=== PATIENT | female | born 1970 | race Caucasian/White ===

== ENCOUNTER 2018-06-28 17:56 | Emergency (ER) | payer OTHER, SELFPAY ==
[2018-06-28 18:01] VITALS: BP 133/88; PULSE 83; RESP 14; TEMP 37.1; O2SAT 100
[2018-06-28] MEDS: Metoclopramide 10 MG TAB PO (18:18)
--- NOTE | 2018-06-28 18:18 | ED.GENADUL_ITS ---
Discharge Plan Disposition Patient Disposition: HOME Condition: Good Discharge Details Chief Complaint: HeadInjury Clinical Impression: Headache Primary Care Provider: Ab Wang ED Provider: Rigo Chan Home Meds and New Rx's Prescriptions: New lidocaine [Lidoderm] 1 PATCH patch 1 patch Topical Q24H Qty: 4 RF: 0 No Action cholecalciferol (vitamin D3) [Vitamin D3] 400 unit Tablet PO DAILY RF: 0 ascorbic acid (vitamin C) [Vitamin C] 500 mg Tablet 500 mg PO DAILY RF: 0 calcium carbonate [Calcium 500] 500 mg calcium (1,250 mg) Tablet PO DAILY RF: 0 cetirizine [24Hour Allergy] 10 mg Tablet PO DAILY RF: 0 Discharge Instructions Instructions: General Headache (ED) Additional Instructions: Please take Tylenol and Motrin as needed for pain. He can take 800 mg of ibuprofen and 1000 mg of Tylenol every 6 hours. Please use Lidoderm patch as directed. Take your home Flexeril only as needed. If you notice any worsening of your symptoms, or any new symptoms such as vomiting, diarrhea, fever, chills, shortness of breath, chest pain, numbness, weakness, or fainting , please return immediately to the emergency department for reevaluation. Please follow up with your primary care provider as soon as possible for reassessment and reevaluation. As always, it was a pleasure participating in your medical care today. Referrals: Ab Wang [Primary Care Provider] - Medical Decision Making This is a 47-year-old female with a past medical history of chronic headaches who presents for evaluation of slightly atypical headache. She hit the back of her head yesterday on a metal piece of a van. She had no loss of consciousness, however since then she has developed which she feels is a tension headache on the left and right side of her head. She is also dizzy, nauseated, and feels like she is in a fog. Physical exam demonstrates no signs of significant trauma. No midline cervical spine tenderness. Neurologic exam demonstrates no significant abnormality suggestive of a severe acute intracranial process. No clinical evidence of a carotid or vertebral artery dissection on exam at this time. I feel the patient signs and symptoms are clinically consistent with mild concussion and mild cervical spine muscles sprain. However because they are atypical for her we will get a CT scan to rule out acute process, bleed or fracture. We will start with a mild migraine cocktail here. 7:52 PM The patient's headache is notably improved. She still does have mild neck achiness but states that she feels much better at this time. We will add a Lidoderm patch. CT scan of the head is negative for any acute process, bleed, or fracture per virtual radiology. CT scan of the cervical spine demonstrates evidence of minimal small left paracentral disc protrusion of C6 5 C6 disc in the C6-C7 disc. No clinical evidence of impingement on exam with normal strength of the upper extremities, no signs of central anterior or posterior cord syndrome. With a continued normal repeat neurologic exam, no evidence of acute intracranial bleed, and notable improvement of her symptoms with NSAID therapy, I feel that the patient be safely discharged home. Recommend continued NSAIDs, Lidoderm patch, she has Flexeril at home. Recommend heating pad at home. I have extensively reviewed the treatment plan and discharge instructions with the patient. I have addressed all patient concerns at this time. The patient was made aware of what symptoms to monitor for that would warrant a return to the emergency department. Discussed the plan with the patient, they demonstrate verbal understanding and agreement with our assessment and plan at this time. EXAM: CT Head Without Contrast EXAM DATE/TIME: 06/28/2018 6:14 PM CLINICAL HISTORY: 47 years old, female; Injury or trauma; Fall; Initial encounter; Blunt trauma (contusions or hematomas); Consciousness not specified; Injury date: 06/27/18; Injury details: Fell yesterday and hit head at base of skull. Headache, dizziness, nausea TECHNIQUE: Imaging protocol: Axial computed tomography images of the head/brain without contrast. Coronal and sagittal reformatted images were created and reviewed. Radiation optimization: All CT scans at this facility use at least one of these dose optimization techniques: automated exposure control; mA and/or kV adjustment per patient size (includes targeted exams where dose is matched to clinical indication); or iterative reconstruction. COMPARISON: No relevant prior studies available. FINDINGS: Brain: No acute intracranial hemorrhage, mass-effect, midline shift, or extra-axial collection is seen. The byrd white matter differentiation appears preserved. Ventricles: The ventricular system and basilar cisterns appear appropriate in size and configuration. Bones/joints: The bony calvarium appears intact. No depressed skull fracture is seen. Sinuses: The visualized paranasal sinuses appear clear. Mastoid air cells: The mastoid air cells appear clear. Auditory system: The middle ear cavities appear clear. Soft tissues: No significant scalp lesion is demonstrated. IMPRESSION: No acute intracranial hemorrhage or depressed skull fracture. EXAM: CT Cervical Spine Without Contrast EXAM DATE/TIME: 06/28/2018 6:14 PM CLINICAL HISTORY: 47 years old, female; Injury or trauma; Fall; Initial encounter; Blunt trauma (contusions or hematomas); Consciousness not specified; Injury date: 06/27/18; Injury details: Fell yesterday and hit head at base of skull. Headache, dizziness, nausea TECHNIQUE: Imaging protocol: Axial computed tomography images of the cervical spine without contrast. Coronal and sagittal reformatted images were created and reviewed. Radiation optimization: All CT scans at this facility use at least one of these dose optimization techniques: automated exposure control; mA and/or kV adjustment per patient size (includes targeted exams where dose is matched to clinical indication); or iterative reconstruction. COMPARISON: No relevant prior studies available. FINDINGS: Vertebrae: No acute cervical fracture is seen. There is straightening and mild reversal of the normal cervical lordosis. This can be seen in the presence of a cervical collar or may result from muscle spasm or positioning; however, in the setting of trauma ligamentous injury cannot be excluded. Discs/Spinal canal/Neural foramina: At C5-C6, there is mild loss of disc height with a small asymmetric left paracentral disc protrusion which abuts and mildly deforms the thecal sac, image 39 of series 10, chronicity uncertain. At C6-C7, there is loss of disc height with a small left paracentral disc protrusion which abuts the thecal sac. There is mild associated posterior osteophytic ridging. At C7-T1, there is loss of disc height but no significant central canal or neural foraminal narrowing. Soft tissues: Within the limits of the exam, no gross soft tissue mass or fluid collection is seen in the neck. Thyroid: The thyroid gland is partially excluded from view but appears grossly unremarkable through its visualized portion. Lungs: The lung apices appear clear. IMPRESSION: 1. No acute cervical fracture or malalignment is seen. 2. C5-C6: Small left paracentral disc protrusion which abuts and mildly deforms the thecal sac, chronicity uncertain. 3. C6-C7, small left paracentral disc protrusion which abuts the thecal sac. Mild associated posterior osteophytic ridging. Dictated and Authenticated by: Hansel Aiken MD. Ordering:AVANI Sierra MD Ordered By: CC: CORINE General Date/Time Provider Initiated Documentation: 06/28/18 17:57 . HPI Narrative: This is a pleasant 47-year-old female with a past medical history of chronic headaches who presents today for evaluation of headache. 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 She had no loss of consciousness, however since then gradually she has had a headache that developed from that location to now encompass both left and the ri ght side of her head. She admits to minimal aversion to light and loud noise, she denies any numbness tingling or weakness. She denies any vomiting but does admit to nausea. She feels that she is in a fog. She denies any room spinning sensation but does admit to dizziness. She denies any tinnitus. She is not on any blood thinners. She has no other complaints at this time. No other modifying factors. She currently denies any neck pain, or other complaints. Related Data Home Medications Medication Instructions Recorded Confirmed ascorbic acid (vitamin C) [Vitamin 500 mg PO DAILY 06/28/18 06/28/18 C] calcium carbonate [Calcium 500] mg PO DAILY 06/28/18 cetirizine [24Hour Allergy] mg PO DAILY 06/28/18 cholecalciferol (vitamin D3) unit PO DAILY 06/28/18 [Vitamin D3] lidocaine [Lidoderm] 1 patch TOPICAL Q24H #4 patch 06/28/18 Previous Rx's Medication Instructions Recorded lidocaine [Lidoderm] 1 patch TOPICAL Q24H #4 patch 06/28/18 Allergies Allergy/AdvReac Type Severity Reaction Status Date / Time No Known Allergies Allergy Unverified 06/28/18 18:05 General Stated Complaint: HeadInjury AVERY: 2 Review of Systems Review of Systems All systems reviewed & are unremarkable except as noted in HPI and below PFSH Social History Smoking/Tobacco Use Status: Current every day Drug use: Never Substance use type: does not use Do you feel safe at home: Yes Do you feel safe in your relationship?: Yes Exam Narrative Exam Narrative: 1.Const: Well-nourished, Well-developed, appearing stated age 2.Eyes: PERRL, no conjunctival injection, and symmetrical lids. 3.ENT: Atraumatic external nose and ears. Moist MM. Neck: Symmetric, trachea midline, No thyromegaly. There is no evidence of raccoon eyes, weber sign, CSF rhinorrhea, mastoid tenderness, cranial crepitus, hemotympanum, exophthalmos, or hyphema. Patient demonstrates intact dentition with no signs of tooth avulsion or fracture, no signs of jaw deformity, no evidence of a LeFort's fracture, with an intact palate, nose and orbital region. There is no evidence of a nasal septal hematoma. No proptosis. Jaw closes symmetrically. Airway is clear. Patient demonstrates good movement of cervical neck. There is no nuchal rigidity, no nuchal tenderness. Patient is able to flex the neck without any difficulty or significant pain. Negative Kernig's and Brudzinski sign. 4.CVS: +S1/S2, No murmurs or gallops. Peripheral pulses 2+ and equal in all extremities. Brisk capillary refill in all extremities. 5.RESP: Unlabored respiratory effort. Clear to auscultation bilaterally. No wheezes rales or rhonchi 6.GI: Soft, Nontender/Nondistended, No hepatosplenomegaly. No guarding or rebound. 7.MSK: Normocephalic/Atraumatic, Extremities w/o deformity or ttp No cyanosis or clubbing, Normal movement of all extremities no midline tenderness to palpation over the CTLS spine. Normal ROM in flexion, extension, side bend, and rotation. Patient has +5 out of 5 strength in the lower extremities in dorsiflexion and plantarflexion, knee flexion and extension, hip flexion and extension. There is +2 over 2 dorsalis pedis pulses bilaterally. There is normal sensation to the skin with light touch at the foot, knee, and hip. Normal saddle sensation. Good sensation over the deep sural nerve area bilaterally. Rectal exam deferred. Reflexes are +2 over 4 in the patellar reflex bilaterally. +5 out of 5 strength in the medial, ulnar, radial nerve distribution bilaterally in the hands as well as intact light touch sensation to these dermatomes on the hands 8.Skin: Warm, Dry. No rashes or lesions. 9.Neuro: curriculum counselor II-XII grossly intact. Sensation grossly intact, no focal neurologic deficits. All 6 cardinal planes of vision are fully intact. No evidence of rotatory or vertical nystagmus. Moderate horizontal nystagmus is noted. The patient demonstrated a normal [id number], good dexterity. There was no evidence of dysdiadochokinesia. Patient was able to ambulate without difficulty. There was no wide-based gait. Romberg, and [id number] are both normal on testing. Sensation was intact bilaterally as well as muscle strength bilaterally for all extremities. Patient was able to verbalize butter cup with no slurring, or miss pronunciation. 10.Psych: (AAO) x3. Appropriate mood and affect Course Vital Signs Temperature 37.1 C 06/28/18 18:01 Pulse 83 06/28/18 18:01 Respiratory Rate 14 06/28/18 18:01 Blood Pressure 133/88 06/28/18 18:01 Pulse Oximetry 100 06/28/18 18:01 Temperature 37.1 C 06/28/18 18:01 Temperature Source Skin 06/28/18 18:01 Pulse 83 06/28/18 18:01 Respiratory Rate 14 06/28/18 18:01 Respiratory Effort 06/28/18 18:11 Respiratory Depth Normal 06/28/18 18:08 Respiratory Pattern Normal 06/28/18 18:08 Blood Pressure 133/88 06/28/18 18:01 Blood Pressure Position Sitting 06/28/18 18:01 Pulse Oximetry 100 06/28/18 18:01 Oxygen Delivery Method Room Air 06/28/18 18:01 Oxygen Flow Rate 0 06/28/18 18:01 Pain Level 1 06/28/18 18:01 Comment 06/28/18 18:01
[2018-06-28] MEDS: Meclizine 25 MG TAB PO (18:19)
[2018-06-28] MEDS: Acetaminophen 500 MG TAB 1000 MG PO (18:19)
--- NOTE | 2018-06-28 18:55 | DI.CT_ITS ---
SYMPTOM/DIAGNOSIS: HIT HEAD, DIZZY, HEADACHE, NAUSEA,FELL, ? FX CRANIAL CT (WITHOUT CONTRAST): A noncontrast cranial CT was performed. The ventricular system is normal in appearance. There is no evidence of an intracranial mass lesion. There is no evidence of a subdural or epidural hematoma. No focal areas of decreased attenuation are seen. CONCLUSION: Normal noncontrast Cranial CT. CERVICAL SPINE CT: CT examination of the cervical spine was performed utilizing multi slice acquisition and multi planar reconstruction. No cervical mass or adenopathy is seen. Tracheal laryngeal structures appear intact. There is a moderate cervical kyphosis. There is disc space narrowing at C 5-6 and C 6-7 with possible small left paracentral disc herniations at each of these levels, chronicity uncertain. No evidence of acute fracture or dislocation. CONCLUSION: No evidence of acute cervical injury.
--- NOTE | 2018-06-28 19:24 | DI.VRAD_ITS ---
EXAM: CT Head Without Contrast EXAM DATE/TIME: 06/28/2018 6:14 PM CLINICAL HISTORY: 47 years old, female; Injury or trauma; Fall; Initial encounter; Blunt trauma (contusions or hematomas); Consciousness not specified; Injury date: 06/27/18; Injury details: Fell yesterday and hit head at base of skull. Headache, dizziness, nausea TECHNIQUE: Imaging protocol: Axial computed tomography images of the head/brain without contrast. Coronal and sagittal reformatted images were created and reviewed. Radiation optimization: All CT scans at this facility use at least one of these dose optimization techniques: automated exposure control; mA and/or kV adjustment per patient size (includes targeted exams where dose is matched to clinical indication); or iterative reconstruction. COMPARISON: No relevant prior studies available. FINDINGS: Brain: No acute intracranial hemorrhage, mass-effect, midline shift, or extra-axial collection is seen. The byrd white matter differentiation appears preserved. Ventricles: The ventricular system and basilar cisterns appear appropriate in size and configuration. Bones/joints: The bony calvarium appears intact. No depressed skull fracture is seen. Sinuses: The visualized paranasal sinuses appear clear. Mastoid air cells: The mastoid air cells appear clear. Auditory system: The middle ear cavities appear clear. Soft tissues: No significant scalp lesion is demonstrated. IMPRESSION: No acute intracranial hemorrhage or depressed skull fracture. EXAM: CT Cervical Spine Without Contrast EXAM DATE/TIME: 06/28/2018 6:14 PM CLINICAL HISTORY: 47 years old, female; Injury or trauma; Fall; Initial encounter; Blunt trauma (contusions or hematomas); Consciousness not specified; Injury date: 06/27/18; Injury details: Fell yesterday and hit head at base of skull. Headache, dizziness, nausea TECHNIQUE: Imaging protocol: Axial computed tomography images of the cervical spine without contrast. Coronal and sagittal reformatted images were created and reviewed. Radiation optimization: All CT scans at this facility use at least one of these dose optimization techniques: automated exposure control; mA and/or kV adjustment per patient size (includes targeted exams where dose is matched to clinical indication); or iterative reconstruction. COMPARISON: No relevant prior studies available. FINDINGS: Vertebrae: No acute cervical fracture is seen. There is straightening and mild reversal of the normal cervical lordosis. This can be seen in the presence of a cervical collar or may result from muscle spasm or positioning; however, in the setting of trauma ligamentous injury cannot be excluded. Discs/Spinal canal/Neural foramina: At C5-C6, there is mild loss of disc height with a small asymmetric left paracentral disc protrusion which abuts and mildly deforms the thecal sac, image 39 of series 10, chronicity uncertain. At C6-C7, there is loss of disc height with a small left paracentral disc protrusion which abuts the thecal sac. There is mild associated posterior osteophytic ridging. At C7-T1, there is loss of disc height but no significant central canal or neural foraminal narrowing. Soft tissues: Within the limits of the exam, no gross soft tissue mass or fluid collection is seen in the neck. Thyroid: The thyroid gland is partially excluded from view but appears grossly unremarkable through its visualized portion. Lungs: The lung apices appear clear. IMPRESSION: 1. No acute cervical fracture or malalignment is seen. 2. C5-C6: Small left paracentral disc protrusion which abuts and mildly deforms the thecal sac, chronicity uncertain. 3. C6-C7, small left paracentral disc protrusion which abuts the thecal sac. Mild associated posterior osteophytic ridging. Dictated and Authenticated by: Hansel Aiken MD. Ordering:AVANI Sierra MD
[2018-06-28] MEDS: Lidocaine 5% Patch 1 PATCH (19:55)
[2018-06-28 20:07] VITALS: BP 127/87; PULSE 81; RESP 14; TEMP 36.9; O2SAT 100
== END 2018-06-28 20:07 | disposition home or self-care (01) ==
PROVIDERS: Emergency Provider Student in an Organized Health Care Education/Training Program; PCP Family Medicine Adult Medicine
DX: M54.2 Cervicalgia (principal); R42 Dizziness and giddiness; R51 Headache; R11.0 Nausea; W22.09XA Striking against other stationary object, initial encounter
CPT/HCPCS: 99284; 70450; 72125